=== PATIENT | male | born 1975 | race Caucasian/White ===

== ENCOUNTER → 2016-06-29 | Day surgery (SDC) | payer BC ==
--- NOTE | 2016-06-28 07:41 | SC.ANESEVA ---
Anesthesia Eval & Plan ([facility]) - Medications/Allergies Allergies: Allergies No Known Allergies Allergy (Verified 03/05/16 08:23) Current Medication List: Reviewed - Focused Physical Exam NPO since: Since after Midnight Mallampati: Class I Thyromental Distance: Greater than 3 Neck: Full Range of Motion Dental: Normal - no significant findings Cardiovascular/Chest: Normal (RRR no mumurs or rubs.) Respiratory: Lungs clear. 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 DIR PRN 09/23/15 09/24/15 History Fluticasone Propionate [Flonase] 1 - 2 spray STARR DAILY 09/23/15 03/04/16 History Omeprazole [Prilosec] 20 mg PO DAILY 09/23/15 03/04/16 History Height and Weight Patient's height 6 ft Patient's weight 83.915 kg BMI 25.0 - Anesthetic Plan Anesthesia Type: General ASA Class: 3 - Focused Review of Systems Cardiac History: Yes: Hx Angina (r/t stress, per patient) HEENT: No: Other HEENT Problems Respiratory: Yes: Hx Sleep Apnea (undiagnosed) Gastrointestinal: Yes: Hx Gastroesophageal Reflux Disease, Hx Gastrointestinal Disorders Neurological/Musculoskeletal: Yes: Hx Migraine Blood/Autoimmune: No: Hx AIDS, Hx Hepatitis (type) Smoking Status: Former smoker Other Surgical History: bilat lasic surgery
[2016-06-28 14:26] VITALS: BMI 26.5
[~2016-06-29] MED LIST: BACITRACIN OINT 28 GM TUBE TOP ONE; DEXAMETHASONE 4 MG/ML VIAL IV PRN; DEXAMETHASONE 4 MG/ML VIAL ONE; DIAZEPAM 5 MG TAB PO PRN; FENTANYL 100 MCG/2 ML VIAL IV PRN; FENTANYL 100 MCG/2 ML VIAL ONE; HYDROCODONE 5 MG/ACETAMIN 325 MG TAB PO PRN; KETOROLAC TROMETH 30 MG/ML VIAL IV PRN; KETOROLAC TROMETH 30 MG/ML VIAL ONE; LABETALOL 20 MG/4 ML SYRINGE IV PRN; LR 1,000 ML IV ONE; LR 1,000 ML IV SCH; MIDAZOLAM 2 MG/2 ML VIAL ONE; NS 1,000 ML IV SCH; NS 250 ML IV SCH; ONDANSETRON HCL 4 MG/2 ML VIAL IV PRN; ONDANSETRON HCL 4 MG/2 ML VIAL ONE; OXYMETAZOLINE 0.05% NASAL SPRAY NAS ONE; PROPOFOL 200 MG/20 ML VIAL IV ONE; ROCURONIUM 50 MG/5 ML VIAL IV ONE; SCOPOLAMINE TRANSDERMAL PATCH TOP PRN; hydrALAZINE 20 MG/ML VIAL IV PRN
--- NOTE | 2016-06-29 09:58 | HIMOPRPT ---
DATE OF PROCEDURE: 06/29/16 PREOPERATIVE DIAGNOSES: 1. Deviated nasal septum, left. 2. Bilateral inferior turbinate hypertrophy. 3. Nasal airway obstruction. POSTOPERATIVE DIAGNOSES: 1. Deviated nasal septum, left. 2. Bilateral inferior turbinate hypertrophy. 3. Nasal airway obstruction. 4. Nasal septal fracture, caudal, indeterminate age. PROCEDURE: 1. Nasal septoplasty. 2. Submucosal resectioning of bilateral inferior turbinates. SURGEON: Cesar Lopes DO. ANESTHESIA: General endotracheal with 1% lidocaine in 1:100,000 epinephrine local injection and topical 0.05% oxymetazoline. ESTIMATED BLOOD LOSS: Approximately 30 mL. COMPLICATIONS: None. SPECIMEN REMOVED: Nasal septal cartilage and bone. ANESTHESIOLOGIST: Dr. Lucas. ASSISTANTS: None. WOUND CLASSIFICATION: II. FLUID REPLACEMENT: Approximately 2500 mL lactated Ringer's. DRAINS: None. PACKINGS: Telfa gauze. DRESSING: Nasal drip pad, 2 x 2 gauze. OPERATIVE FINDINGS: The nasal septum demonstrated an age-indeterminate caudal cartilaginous fracture. This fracture causes a slight bowing of the nasal septum to the right side. However, the nasal septum demonstrated overall deviation to the left side, involving cartilaginous septum just posterior to this fracture and bony nasal septum. A small a prominent bony spur to the right side very posteriorly was also noted. The maxillary crest demonstrated a spur and deviation to the left inferiorly. Bilateral inferior turbinates were boggy and hypertrophic. The turbinates hypertrophy further as to his nasal obstruction. INDICATIONS: This patient is a 41 year-old male with a history of persistent nasal congestion and obstruction for many years. The patient has tried various topical nasal steroid sprays, such as Flonase and Nasacort, as well as topical antihistamine sprays, along with oral decongestants, oral steroids, all without appreciable improvement in his symptoms. Anterior rhinoscopy and rigid nasal endoscopy demonstrated a predominantly deviated septum towards the left side, with bilateral inferior turbinates hypertrophy. Options were reviewed and discussed with the patient. He is refractory to maximal medical management. He is here today for elective nasal septoplasty and resection in of his inferior turbinates. DESCRIPTION OF THE PROCEDURE: All risks, benefits, potential complications, and alternatives were reviewed with the patient. After all of the patient's questions and concerns were fully answered and addressed, consent was signed and charted. The patient was identified in the preoperative holding area and brought to the operating room and placed on the operating table in the supine position. General endotracheal anesthesia was administered by the anesthesiologist. Once the airway was secured, the patient was then placed in a Semi-Daugherty's position. The patient was then prepped and draped in the usual sterile fashion as appropriate for nasal surgery. Approximately 10 mL of 1% lidocaine in 1:100,000 epinephrine local injection was infiltrated to the nasal septum. Approximately 2-3 minutes were allowed to elapse. A #15 blade was then used to make a left hemitransfixion incision. This incision was carried down to the caudal cartilaginous septum. An age- indeterminate caudal cartilaginous septal fracture was noted. A Sudha elevator was then used to elevate a mucoperichondrial flap. This flap was then extended superiorly, posteriorly, as well as inferiorly. A small 3-4 mm strip of cartilaginous septum was resected off the underlying maxillary crest. A vertical incision was then made to the cartilaginous septum using a [place] elevator, just at the start point of the septal deviation. Mucoperichondrial flap was then elevated on the right side posterior to this vertical incision. Rody forcep was then used to resect the deviated cartilaginous septum. Mucoperiosteal flaps were then elevated posterior to the bony-cartilaginous junction. Rody forcep was then used to resect the remaining deviated septum. A [place] elevator was now used to elevate mucoperiosteal flaps lateral to the bony maxillary crest spur. Once this was elevated, a 4 mm septal chisel was then used to resect the maxillary crest. Minimal oozing was noted from the maxillary crest. The mucoperichondrial flaps were then reapproximated using 4-0 plain gut suture in a continuous running vertical mattress whipstitch. The hemitransfixion incision was then reapproximated with 5-0 chromic suture. The nasal cavities were then copiously irrigated with saline. The saline, old blood , and some secretions were then suctioned away. Approximately 3-4 mL of 1% lidocaine in 1:100,000 epinephrine local injection was infiltrated to each inferior turbinate. Approximately 2-3 minutes were allowed to elapse. A #15 blade was then used to make a stab incision to the anterior edges of the inferior turbinates. A [place] elevator was then used to elevate submucosal tunnel to each inferior turbinate. The ArthroCare Turbinator Coblation Wand was then used to submucosally resect the inferior turbinates. Two passes of this turbinated Coblation were performed to each inferior turbinate. Once this was done, each inferior turbinate was medialized and in- fractured using a [place] elevator and then lateralized and out-fractured using a Mcginnis bar. The anterior cut edges of the inferior turbinates were then cauterized with suction Bovie cautery. The nasal cavities were copiously irrigated with saline again. The saline, old blood, and some of the clot and secretions were then suctioned away. The nasal cavities were then packed with cotton pledgets soaked with 0.05% oxymetazoline. The oral cavity and oropharynx were then suctioned away of old blood and clots. The cotton pledgets were removed. The nasal cavities were then packed with Telfa gauze, coated with bacitracin ointment. The patient tolerated the procedure. There were no complications. All of our counts were correct at the end of the case. A formal time-out was performed prior to the start of surgery. The patient was subsequently awakened and extubated by the anesthesiologist and brought out to the recovery area in satisfactory condition.
--- NOTE | 2016-06-29 10:00 | PCM.DCS92 ---
Discharge Outpatient Note Additional Instructions: Instructions: 06/29/16 See Home Medication List reconciliation for use after discharge . Maintain adequate oral hydration, ice chips, ice-cold fluids and clears, and gradually advance diet as tolerated. Light activities for approximately 2 weeks; Keep head elevated for approximately 2 weeks. No nose-blowing and sneeze with the mouth open for the next 2 weeks. Take antibiotics, as directed. May take Advil/Motrin/ibuprofen or Tylenol/ acetaminophen, as needed for pain. Follow up with Dr. Lopes on 06/30/2016. Call office for fever over 101F, if bleeding is not controlled, or if there are any questions ([phone]).
[2016-06-29 10:18] VITALS: TEMP 97.1
[2016-06-29 11:14] VITALS: BP 137/77; PULSE 82
--- NOTE | 2016-06-29 11:16 | SC.ANESPOS ---
Post-Anesthesia Note LOC: Fully Awake Post-Anesthesia Assessment: Awake, Returned to Baseline, Hemodynamically Stable , Pain Control Adequate Phase I & II Recovery Complete: Yes Apparent Anesthesia Complication: No : N - Vital Signs Blood Pressure: 137/77 Pulse: 82 Resp Rate: 20 O2 Sat: 98 Temp: 97.1 F
== END ==
LOC: CPSC 07:09
PROVIDERS: ATTEND Otolaryngology Facial Plastic Surgery
PROC: 09BL0ZZ Excision of Nasal Turbinate, Open Approach (ICD-10-PCS; 2016-06-29)
PROC: 09SM0ZZ Reposition Nasal Septum, Open Approach (ICD-10-PCS; principal; 2016-06-29 08:15)
DX: J34.2 Deviated nasal septum (principal); J34.3 Hypertrophy of nasal turbinates; R09.81 Nasal congestion; I25.10 Atherosclerotic heart disease of native coronary artery without angina pectoris; J30.9 Allergic rhinitis, unspecified; K21.9 Gastro-esophageal reflux disease without esophagitis; G43.909 Migraine, unspecified, not intractable, without status migrainosus; E78.5 Hyperlipidemia, unspecified; G47.30 Sleep apnea, unspecified; Z87.891 Personal history of nicotine dependence; Z79.899 Other long term (current) drug therapy
CPT/HCPCS: 30140; 30520; J1100; J1885; J2250; J2405; J2704; J3010; J3490